=== PATIENT | male | born 1970 ===

== ENCOUNTER 2016-06-13 09:06 | Emergency (ER) | payer OTHER ==
[2016-06-13 09:07] VITALS: BMI 30.2
[2016-06-13 09:13] VITALS: TEMP 97.5; O2SAT 98
[2016-06-13] MEDS ORDERED: Albuterol-Ipratrop 3 mg / 0.5 (3 ml) UD IH STA (09:29)
--- NOTE | 2016-06-13 09:35 | C.PDOC ---
History Of Present Illness 45M c/o allergy symptoms for the last 20 days- itchy eyes, runny nose, dry cough. he has a hx of asthma and says when he gets allergies it tends to make his asthma worse, however he does not have an inhaler. he has been taking sangeeta without relief. he denies any chest pain, fever, difficulty breathing or any other complaints. Time Seen by Provider: 06/13/16 09:15 Chief Complaint (Nursing): Allergic Reaction Past Medical History Vital Signs: Last Vital Signs Temp 97.5 F L 06/13/16 09:09 Pulse 90 06/13/16 09:45 Resp 16 06/13/16 09:45 BP 124/78 06/13/16 09:45 Pulse Ox 98 06/13/16 10:13 - Medical History PMH: Asthma Family History: States: Unknown Family Hx - Social History Hx Alcohol Use: Yes Hx Substance Use: No - Immunization History Hx Tetanus Toxoid Vaccination: No Hx Influenza Vaccination: No Hx Pneumococcal Vaccination: No Review Of Systems Constitutional: Negative for: Fever, Chills, Weakness Eyes: Positive for: Other (pruritis). Negative for: Vision Change ENT: Positive for: Nose Discharge (clear) Cardiovascular: Negative for: Chest Pain Respiratory: Positive for: Cough. Negative for: Shortness of Breath, Hemoptysis , SOB with Excertion, Sputum Gastrointestinal: Negative for: Nausea, Vomiting, Abdominal Pain Neurological: Negative for: Weakness, Numbness Physical Exam - Physical Exam Appears: Well, Non-toxic, No Acute Distress Skin: Warm, Dry Eye(s): bilateral: Other (mild conj injection b/l) Nose: No Epistaxis Oral Mucosa: Moist Tongue: No Swelling Lips: No Swelling Neck: Normal ROM Cardiovascular: Rhythm Regular Respiratory: Normal Breath Sounds, No Decreased Breath Sounds, No Accessory Muscle Use, No Rales, No Rhonchi, No Stridor, No Wheezing Neurological/Psych: Oriented x3, Other (no focal deficits) ED Course And Treatment O2 Sat by Pulse Oximetry: 98 Medical Decision Making Medical Decision Making: the pt requested a nebulizer rx, reported feeling better after. follow up and return precautions advised. Disposition - Disposition Referrals: [facility] [Outside] Disposition: HOME/ ROUTINE Disposition Time: 10:13 Condition: IMPROVED Additional Instructions: Please follow up with a primary doctor. Return to the ER for any worsening symptoms or for any other concerns. Prescriptions: Albuterol HFA [Ventolin HFA 90 mcg/actuation (8 g)] 1 - 2 puff IH Q6H PRN #1 inhaler PRN Reason: Wheezing DiphenhydrAMINE [Benadryl] 25 mg PO Q8H PRN #8 cap PRN Reason: Allergy Symptoms Prednisone [Deltasone] 40 mg PO DAILY #4 tablet Instructions: Allergies (ED) Forms: Gen Discharge Inst German Print Language: ITALIAN - Clinical Impression Clinical Impression: Environmental allergies
[2016-06-13] MEDS ORDERED: Albuterol 0.083% Inhal Sol (2.5 mg/3 mL) UD ONE (09:37)
[2016-06-13 10:51] VITALS: BP 124/78; PULSE 90; RESP 16
== END 2016-06-13 09:45 | disposition home or self-care (01) ==
LOC: C.ER 09:06
DX: T78.49XA Other allergy, initial encounter (principal)

== ENCOUNTER 2016-06-17 19:54 | Emergency (ER) | payer MEDICAID, OTHER ==
[2016-06-17 19:55] VITALS: BMI 30.2
[2016-06-17 20:28] VITALS: BP 153/88; PULSE 82; RESP 20; TEMP 98; O2SAT 98
--- NOTE | 2016-06-17 20:41 | C.PDOC ---
History Of Present Illness A 45 year old male presents to the ER c/o diffuse pruritic rash for 2 days. Patient also notes URI symptoms and fever for 4 days. Patient was seen in the ER for asthma and was given meds for asthma and URI sx. Patient denies SOB, nausea, vomiting, sick contact, or any other complaints. Time Seen by Provider: 06/17/16 20:40 Chief Complaint (Nursing): Abnormal Skin Integrity History Per: Patient History/Exam Limitations: no limitations Onset/Duration Of Symptoms: Days Current Symptoms Are (Timing): Still Present Quality Of Symptoms: Itching Severity: Mild Additional History Per: Patient Past Medical History Reviewed: Historical Data, Nursing Documentation, Vital Signs Vital Signs: Last Vital Signs Temp 98 F 06/17/16 20:25 Pulse 82 06/17/16 20:25 Resp 20 06/17/16 20:25 BP 153/88 H 06/17/16 20:25 Pulse Ox 98 06/17/16 21:36 - Medical History PMH: Asthma Family History: States: Unknown Family Hx - Social History Hx Alcohol Use: Yes Hx Substance Use: No - Immunization History Hx Tetanus Toxoid Vaccination: No Hx Influenza Vaccination: No Hx Pneumococcal Vaccination: No Review Of Systems Except As Marked, All Systems Reviewed And Found Negative. Constitutional: Positive for: Fever ENT: Positive for: Nose Discharge, Nose Congestion Respiratory: Positive for: Cough Gastrointestinal: Negative for: Nausea, Vomiting Skin: Positive for: Rash (Pruritic) Physical Exam - Physical Exam Appears: Non-toxic, No Acute Distress Skin: Warm, Dry, Rash (Scattered erythematous vesicular rash on the back, face, and upper extremity.), No Other (No pustules) Head: Atraumatic, Normacephalic Eye(s): bilateral: Normal Inspection, PERRL Ear(s): Bilateral: Normal Tongue: Normal Appearing, No Swelling Lips: Normal Appearing, No Swelling Throat: Normal, No Erythema Cardiovascular: Rhythm Regular, No Murmur Respiratory: Normal Breath Sounds, No Rales, No Rhonchi, No Wheezing Neurological/Psych: Oriented x3, Normal Speech, Normal Cognition ED Course And Treatment O2 Sat by Pulse Oximetry: 98 (RA) Pulse Ox Interpretation: Normal Medical Decision Making Medical Decision Making: Plans: -Benadryl IM -Reassess and disposition Patient is resting comfortably, tolerating PO, and is afebrile at this time. Clinical signs and symptoms are not suggestive of sepsis, meningitis, UTI, pneumonia, intra-abdominal pathology, or cellulitis.Patient will be discharged home, and instructed to follow up with his/her physician in 1-2 days without fail.Patient was instructed to return for any worsening symptoms, persistent fever, neck pain, rash, abdominal pain, or vomiting. Disposition Counseled Patient/Family Regarding: Diagnosis, Need For Followup, Rx Given - Disposition Disposition: HOME/ ROUTINE Disposition Time: 21:34 Condition: STABLE Additional Instructions: Please follow up in clinic Increase PO fluids Take meds as directed for fever and itching Return to ER if difficulty breathing, persistent fever pr worse Prescriptions: DiphenhydrAMINE [Benadryl] 50 mg PO Q6H #14 cap Ibuprofen [Motrin] 600 mg PO Q6H #20 tab Instructions: Chickenpox (ED) Print Language: DJIBOUTIAN - Clinical Impression Clinical Impression: Varicella - Scribe Statement The provider has reviewed the documentation as recorded by the Deliaibjose luis fonseca All medical record entries made by the Hilaria were at my direction and personally dictated by me. I have reviewed the chart and agree that the record accurately reflects my personal performance of the history, physical exam, medical decision making, and the department course for this patient. I have also personally directed, reviewed, and agree with the discharge instructions and disposition.
[2016-06-17] MEDS ORDERED: DiphenhydrAMINE 50 mg/ml Inj IM STA (20:54)
[2016-06-17] MEDS ORDERED: DiphenhydrAMINE 50 mg/ml Inj ONE (21:13)
== END 2016-06-17 21:40 | disposition home or self-care (01) ==
LOC: C.ER 19:54
DX: B01.9 Varicella without complication (principal)
CPT/HCPCS: 96372; 99283; J1200